=== PATIENT | male | born 1945 | race Caucasian/White ===

== ENCOUNTER → 2017-10-12 | Outpatient (CLI) | payer OTHER ==
[~2017-10-12] MED LIST: Doxycycline Hy100 MG PO; Vibramycin100 MG PO
== END | disposition home or self-care (01) ==
LOC: PLD 13:58
DX: M79.89 Other specified soft tissue disorders (principal)
CPT/HCPCS: 88304

== ENCOUNTER → 2018-03-19 | Outpatient (CLI) | payer OTHER | END | disposition home or self-care (01) | LOC: PLD 11:16 → LAB SHORT 11:16 | DX: L57.0 Actinic keratosis (principal) | CPT/HCPCS: 88305 ==

== ENCOUNTER 2019-01-13 08:25 | Day surgery (SDC) | payer OTHER ==
[~2019-01-13] VITALS: Ht 185.4 cm; Wt 72.4 kg
[~2019-01-13 08:25] MED LIST changes: +ESOM20 PO
[2019-01-13] MEDS ORDERED: IBUPROFEN COLD PO (09:12)
== END 2019-01-13 10:42 | disposition home or self-care (01) ==
LOC: ORSCSDS 08:25
PROVIDERS: Internal Medicine Gastroenterology
PROC: 0DB58ZX Excision of Esophagus, Via Natural or Artificial Opening Endoscopic, Diagnostic (ICD-10-PCS; principal; 2019-01-13 09:45)
DX: R13.10 Dysphagia, unspecified (principal); K20.9 Esophagitis, unspecified; R23.4 Changes in skin texture; Z86.73 Personal history of transient ischemic attack (TIA), and cerebral infarction without residual deficits; I10 Essential (primary) hypertension; E78.5 Hyperlipidemia, unspecified; Z79.899 Other long term (current) drug therapy
CPT/HCPCS: 88305; 88312; J2704; J7120

== ENCOUNTER → 2020-02-16 | Outpatient (CLI) | payer OTHER ==
[~2020-02-16] MED LIST changes: +IBUPROFEN COLD PO
== END ==
LOC: LAB SHORT 10:56 → LAB 10:56
DX: D48.5 Neoplasm of uncertain behavior of skin (principal)
CPT/HCPCS: 88305

== ENCOUNTER → 2020-08-24 | Outpatient (CLI) | payer OTHER ==
[~2020-08-24] MED LIST changes: +IBUP600 PO
== END | disposition home or self-care (01) ==
LOC: LAB 11:10 → LAB SHORT 11:10
DX: L57.0 Actinic keratosis (principal)
CPT/HCPCS: 88305

== ENCOUNTER 2020-10-08 11:09 | Day surgery (SDC) | payer OTHER ==
[~2020-10-08] VITALS: Ht 185.4 cm; Wt 72.5 kg
[~2020-10-08 11:09] MED LIST changes: -IBUP600 PO
[2020-10-08] MEDS ORDERED: IBUP600 PO (12:40)
--- NOTE | 2020-10-08 14:15 | NUR ---
10/08/20 1415 Kuldeep Figueroa History, Chart, Medications and Allergies reviewed before start of procedure.MONITOR INTACT WITH CONTINUOUS PULSE OXIMETRY AND INTERMITTENT BP.3-LEAD EKG REVIEWED WITH PHYSICIAN PRIOR TO START OF PROCEDURE.O2 VIA N/C INTACT THROUGHOUT SEDATION/PROCEDURE. See Anesthesia record.
--- NOTE | 2020-10-08 14:58 | NUR ---
PT TOLERATES APPLE JUICE s DIFFICULTY. SITE c DRESSING IN PLACE, NO REDNESS OR DRAINAGE NOTED ON BANDAGE. IV DC'D, CATH INTACT AND PRESSURE DRESSING APPLIED. GIVEN DC INSTRUCTIONS. PT VERBALIZES AN UNDERSTANDING. NO QUESTIONS. PT DRESSES SELF s DIFFICULTY. OTD IN NAD VIA WC, INSTRUCTIONS ALSO GIVEN TO . VERBALIZES AN UNDERSTANDING s QUESTIONS.
== END 2020-10-08 23:06 | disposition home or self-care (01) ==
LOC: ORSCMMR 11:09 → ORD 12:30 → ORSCMMR 12:30
PROVIDERS: Surgery
PROC: 0DH63UZ Insertion of Feeding Device into Stomach, Percutaneous Approach (ICD-10-PCS; principal; 2020-10-08 12:30)
DX: C10.2 Malignant neoplasm of lateral wall of oropharynx (principal); I10 Essential (primary) hypertension; R13.10 Dysphagia, unspecified; G47.30 Sleep apnea, unspecified
CPT/HCPCS: C1769; J0690; J2704; J7120

== ENCOUNTER → 2021-02-22 | Outpatient (CLI) | payer OTHER ==
[~2021-02-22] MED LIST changes: +IBUP600 PO
== END | disposition home or self-care (01) ==
LOC: LAB SHORT 12:00
DX: D22.5 Melanocytic nevi of trunk (principal); L57.0 Actinic keratosis
CPT/HCPCS: 88305

== ENCOUNTER 2021-07-06 15:31 | Emergency (ER) | payer OTHER ==
[~2021-07-06] VITALS: Ht 185.4 cm; Wt 65.8 kg
[2021-07-06 16:27] LABS: BASOPHILS ABSOLUTE AUTO 0.01 K/mm3 (0.00-0.23); BASOPHILS PERCENT AUTO 0 % (0-2); EOSINOPHILS ABSOLUTE AUTO 0.04 K/mm3 (0.00-0.68); EOSINOPHILS PERCENT AUTO 1 % (0-6); Hemoglobin 15.3 g/dL (13.5-17.5); IMMATURE GRAN ABSOLUTE AUTO 0.03 K/mm3 (0.00-0.10); IMMATURE GRAN PERCENT AUTO 1 % (0-1); LYMPHOCYTES ABSOLUTE AUTO 0.41 K/mm3 (0.84-5.20); LYMPHOCYTES PERCENT AUTO 6 % (21-46); MONOCYTES ABSOLUTE AUTO 0.47 K/mm3 (0.16-1.47); MONOCYTES PERCENT AUTO 7 % (4-13); Mean Corpuscular HGB 32.6 pg (26.0-34.0); Mean Corpuscular HGB Conc 33.3 g/dL (31.5-36.5); Mean Corpuscular Volume 98 fL (80-100); NEUTROPHILS ABSOLUTE AUTO 5.67 K/mm3 (1.96-9.15); NEUTROPHILS PERCENT AUTO 85 % (41-73); Platelet Count 186 K/mm3 (150-400); RDW Coefficient Variation 11.7 % (11.7-14.2); RDW Standard Deviation 42.5 fL (35.1-46.3); White Blood Cell Count 6.63 K/mm3 (4.00-11.30)
[2021-07-06 16:49] LABS: Alanine Aminotransfer (ALT/SGP 104 U/L (12-78); Albumin, Blood 3.6 g/dL (3.4-5.0); Alk Phos 351 U/L (50-136); Anion Gap 6 mmol/L (6-16); Aspartate Aminotrans (AST/SGOT 181 U/L (12-37); Bilirubin, Total 1.7 mg/dL (0.1-1.0); Blood Urea Nitrogen 11 mg/dL (8-24); Bun/Creatinine Ratio 15.9 (12.0-20.0); CO2, Blood 30 mmol/L (21-32); Calcium, Blood 9.5 mg/dL (8.5-10.1); Chloride, Blood 105 mmol/L (98-108); Creatinine, Blood 0.69 mg/dL (0.60-1.20); Globulin, Blood 3.6 g/dL (2.2-4.0); Glomerular Filtration Rate >60 (60-); Glucose, Blood 130 mg/dL (70-99); Sodium, Blood 141 mmol/L (136-145); Total Protein, Blood 7.2 g/dL (6.4-8.2)
[2021-07-06] MEDS ORDERED: ONDA4ODT MM (19:06)
== END 2021-07-06 19:42 | disposition home or self-care (01) ==
LOC: ER 15:31
PROVIDERS: Physician Assistant
DX: A08.4 Viral intestinal infection, unspecified (principal); Z88.0 Allergy status to penicillin; Z88.1 Allergy status to other antibiotic agents; Z79.899 Other long term (current) drug therapy; J44.9 Chronic obstructive pulmonary disease, unspecified
CPT/HCPCS: 36415; 76705; 80053; 83690; 85025; 96374; 96375; 99284-25; A9270; J1885; J2405; J7030

== ENCOUNTER 2022-04-26 19:39 | Emergency (ER) | payer OTHER ==
[~2022-04-26] VITALS: Ht 185.4 cm; Wt 68.0 kg
[~2022-04-26 19:39] MED LIST changes: +ONDA4ODT MM
[2022-04-26 20:14] LABS: BASOPHILS ABSOLUTE AUTO 0.03 K/mm3 (0.00-0.23); BASOPHILS PERCENT AUTO 0 % (0-2); EOSINOPHILS ABSOLUTE AUTO 0.47 K/mm3 (0.00-0.68); EOSINOPHILS PERCENT AUTO 5 % (0-6); IMMATURE GRAN ABSOLUTE AUTO 0.03 K/mm3 (0.00-0.10); IMMATURE GRAN PERCENT AUTO 0 % (0-1); LYMPHOCYTES ABSOLUTE AUTO 0.71 K/mm3 (0.84-5.20); LYMPHOCYTES PERCENT AUTO 7 % (21-46); MONOCYTES PERCENT AUTO 9 % (4-13); Mean Corpuscular HGB Conc 33.3 g/dL (31.5-36.5); Mean Corpuscular Volume 90 fL (80-100); Mean Platelet Volume 10.6 fL (9.1-12.4); NEUTROPHILS ABSOLUTE AUTO 7.83 K/mm3 (1.96-9.15); NEUTROPHILS PERCENT AUTO 79 % (41-73); Platelet Count 350 K/mm3 (150-400); RDW Coefficient Variation 12.5 % (11.7-14.2); RDW Standard Deviation 41.9 fL (35.1-46.3); White Blood Cell Count 9.97 K/mm3 (4.00-11.30)
[2022-04-26 20:40] LABS: Albumin, Blood 2.5 g/dL (3.4-5.0); Albumin/Globulin Ratio 0.5 (0.8-1.8); Bilirubin, Total 0.4 mg/dL (0.1-1.0); Bun/Creatinine Ratio 25.8 (12.0-20.0); Creatinine, Blood 0.62 mg/dL (0.60-1.20); Globulin, Blood 4.9 g/dL (2.2-4.0); Potassium, Blood 4.1 mmol/L (3.5-5.5); Total Protein, Blood 7.4 g/dL (6.4-8.2)
[2022-04-26 20:42] LABS: Source, Urine Clean Catch
[2022-04-26 20:49] LABS: Bilirubin, Urine Neg (Neg); Blood, Urine Neg (Neg); Glucose Qualitative, Urine Neg (Neg); Ketones, Urine Neg (Neg); Leukocyte Esterase, Urine Neg (Neg); Nitrite, Urine Neg (Neg); Protein, Urine Neg (Neg); Urobilinogen, Urine NORM (Normal)
[2022-04-26 21:00] LABS: Appearance, Urine Clear (Clear); Color, Urine Yellow (P-Yellow)
== END 2022-04-27 01:14 | disposition home or self-care (01) ==
LOC: ER 19:39
PROVIDERS: Physician Assistant
DX: R55 Syncope and collapse (principal); J44.9 Chronic obstructive pulmonary disease, unspecified; N17.9 Acute kidney failure, unspecified; I49.1 Atrial premature depolarization; I49.3 Ventricular premature depolarization; Z85.89 Personal history of malignant neoplasm of other organs and systems; Z88.0 Allergy status to penicillin; Z88.1 Allergy status to other antibiotic agents
CPT/HCPCS: 36415; 80053; 81003; 83690; 84484; 85025; 93005; 93010; 96360; 99284-25; J2405; J7030

== ENCOUNTER → 2022-05-02 | Outpatient (CLI) | payer OTHER | END | disposition home or self-care (01) | LOC: LAB 13:45 → LAB SHORT 13:45 | DX: L08.0 Pyoderma (principal) | CPT/HCPCS: 87070; 87075; 87205 ==

== ENCOUNTER 2022-06-15 10:38 | Observation (INO) | payer OTHER ==
[~2022-06-15] VITALS: Ht 185.4 cm; Wt 69.6 kg
[2022-06-15 11:50] LABS: BASOPHILS ABSOLUTE AUTO 0.04 K/mm3 (0.00-0.23); BASOPHILS PERCENT AUTO 0 % (0-2); EOSINOPHILS ABSOLUTE AUTO 0.01 K/mm3 (0.00-0.68); EOSINOPHILS PERCENT AUTO 0 % (0-6); Hematocrit 32.6 % (37.0-53.0); Hemoglobin 10.6 g/dL (13.5-17.5); IMMATURE GRAN ABSOLUTE AUTO 0.14 K/mm3 (0.00-0.10); IMMATURE GRAN PERCENT AUTO 1 % (0-1); LYMPHOCYTES ABSOLUTE AUTO 0.24 K/mm3 (0.84-5.20); LYMPHOCYTES PERCENT AUTO 2 % (21-46); MONOCYTES ABSOLUTE AUTO 0.72 K/mm3 (0.16-1.47); MONOCYTES PERCENT AUTO 5 % (4-13); Mean Corpuscular HGB 28.9 pg (26.0-34.0); Mean Corpuscular HGB Conc 32.5 g/dL (31.5-36.5); Mean Corpuscular Volume 89 fL (80-100); Mean Platelet Volume 11.1 fL (9.1-12.4); NEUTROPHILS ABSOLUTE AUTO 12.85 K/mm3 (1.96-9.15); NEUTROPHILS PERCENT AUTO 92 % (41-73); Platelet Count 426 K/mm3 (150-400); RDW Coefficient Variation 14.4 % (11.7-14.2); RDW Standard Deviation 46.2 fL (35.1-46.3); Red Blood Cell Count 3.67 M/mm3 (4.30-5.90)
[2022-06-15 12:21] LABS: Albumin, Blood 2.3 g/dL (3.4-5.0); Albumin/Globulin Ratio 0.5 (0.8-1.8); Bilirubin, Total 0.4 mg/dL (0.1-1.0); Bun/Creatinine Ratio 29.5 (12.0-20.0); Calcium, Blood 8.8 mg/dL (8.5-10.1); Creatinine, Blood 0.58 mg/dL (0.60-1.20); Globulin, Blood 4.4 g/dL (2.2-4.0); Potassium, Blood 4.1 mmol/L (3.5-5.5); Total Protein, Blood 6.7 g/dL (6.4-8.2)
[2022-06-15] MEDS ORDERED: Prednisone10 MG PO (13:49)
[2022-06-15] MEDS ORDERED: HYDROCODONE-AC118 M5 PO (13:51)
--- NOTE | 2022-06-15 14:54 | NUR ---
Spiritual Care ED Visit - Pt. request Pt. is awake in bed in the ED and welcomes my visit. Spouse had requested Spiritual Care visit, and is also present. Pt. is initially unsettled because of the uncertain cause of acute pain earlier in the day. Through theraputic listening and a calming presence Pt. displays evidence of relaxing and rapport is established. Pt is taken to get a Ct Scan, when he returns Prayed with Pt. and spouse. Pt. requested this dock boss communicate his condition with an elder from his restorationist. Will continue to be available to the Pt. and spouse.
[2022-06-15 16:02] LABS: Anti-Xa UFH, PHA Monitoring <0.10 IU/mL; Prothrombin Time Results 10.5 Sec (9.7-11.5)
--- NOTE | 2022-06-15 19:44 | NUR ---
PT ARRIVED FROM ED 1941 VIA STRETCHER, AMBULATED TO BED SBA. ORIENTED TO ROOM SET UP AND SAFETY. AT BEDSIDE SUPPORTIVE IN PT CARE. SETTLED IN AND GOT FLUIDS, AWAITING TELE. PT STATES NO ACTIVE CHEST PAIN CURRENTLY. CALL LIGHT IN REACH. WILL REPOERT TO GRAIN THRESHER.
[2022-06-15] MEDS ORDERED: IBUP400 PO (20:07)
[2022-06-15] MEDS ORDERED: Acetaminophen650 M1 PO (20:07)
--- NOTE | 2022-06-16 06:41 | NUR ---
SHIFT SUMMARY; NO ACUTE CHANGES OVERNIGHT. PTS TROPONIN LEVEL DID ELEVATE TO 176, BUT THE PT DENIES CHEST PAIN/SOB AND CHEST TIGHTNESS. NOTIFIED OF ELEVATED TROPONIN, NO NEW ORDERS AT THIS TIME. THE PT WAS ABLE TO GET SOME REST LAST NIGHT. CURRENTLY THE PT IS RESTING IN BED WITH THE BED IN THE LOWEST POSITION AND THE CALL LIGHT AT BEDSIDE.
--- NOTE | 2022-06-16 17:06 | NUR ---
SHIFT SUMMARY NO ACUTE CHANGES DURING SHIFT. PT ALERT AND ORIENTED, CALLS APPROPRIATELY. ECHO COMPLETED, CARDIAC CONSULT COMPLETED, STRESS TEST ORDERED. PT COMPLETED RESTING IMAGES TODAY, COMPLETE [place] TOMORROW MORNING. PT ON RA, INDEPENDENT IN ROOM. WILL CONTINUE TO MONITOR. CALL LIGHT WITHIN REACH.
--- NOTE | 2022-06-16 17:09 | NUR ---
Pt. is awake and welcomes my visit. Spouse is present and rapport is quickly re-established. Facilitate life review and prognosis update. Pt. displays evidence of engagement, optimism and hope. [place] with Pt. and spouse and both verbalize gratitude for the spiritual care visit.
--- NOTE | 2022-06-17 04:08 | NUR ---
SHIFT SUMMARY NOC PT A/OX4. NO ACUTE CHANGES DURING SHIFT. PT STILL ON TELE WITH SINUS ARRYHTMIA @ 80bpm. PT HAS NOT HAD A BM IN A COUPLE OF DAYS. PT IS CURRENTLY IS ON A NO CAFFEINE RESTRICTION AND IS NPO PENDING STRESS TEST AT 0800 ON 06/17/22. PT IS CURRENTLY RESTING WITH BED RAILS UP, BED IN LOWEST POSITION, AND CALL LIGHT WITHIN REACH.
--- NOTE | 2022-06-17 08:13 | NUR ---
medical laboratory technical officer in room with pt for stress test
--- NOTE | 2022-06-17 08:24 | NUR ---
while performing shift assessment, assessing pt's psych/social status r/t cancer diagnosis pt reports he has no pain in the throat at this time, that the cancer there is gone but that his pain is in his back r/t the hospital bed. 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 this rn provided therapeutic communication regarding pt's family and activities
--- NOTE | 2022-06-17 11:30 | NUR ---
pt and family provided with discharge instructions, printed education; pt and state understanding of instructions. peripheral IV removed WNL. pt's family will transport his belongings to waiting vehicle. pt declines wheelchair escort to vehicle, prefers to walk
[2022-06-17] MEDS ORDERED: DOCUZEN 8.6-501 EACH PO (12:00)
== END 2022-06-17 12:13 | disposition home or self-care (01) ==
LOC: ER 10:38 → MEDS 10:39
PROVIDERS: Physician Assistant; Student in an Organized Health Care Education/Training Program; ADMIT Family Medicine
DX: R07.89 Other chest pain (principal); C34.31 Malignant neoplasm of lower lobe, right bronchus or lung; C78.7 Secondary malignant neoplasm of liver and intrahepatic bile duct; C79.51 Secondary malignant neoplasm of bone; C79.89 Secondary malignant neoplasm of other specified sites; R06.00 Dyspnea, unspecified; I49.3 Ventricular premature depolarization; I49.1 Atrial premature depolarization; D72.829 Elevated white blood cell count, unspecified; R63.4 Abnormal weight loss; R77.8 Other specified abnormalities of plasma proteins; J44.9 Chronic obstructive pulmonary disease, unspecified; Z88.0 Allergy status to penicillin; Z88.1 Allergy status to other antibiotic agents; Z85.819 Personal history of malignant neoplasm of unspecified site of lip, oral cavity, and pharynx
CPT/HCPCS: 36415; 71046; 71260; 78452; 80053; 83690; 84484; 85025; 85520; 85610; 85651; 85730; 86140; 93005; 93010; 93017; 93306; 96372; A9270; A9500; G0378; J0706; J1644; J1650; J2270; J2785; J7512; Q9967

== ENCOUNTER 2022-07-05 09:40 | Day surgery (SDC) | payer OTHER ==
[~2022-07-05] VITALS: Ht 185.4 cm; Wt 69.5 kg
[~2022-07-05 09:40] MED LIST changes: +Acetaminophen650 M1 PO; +DOCUZEN 8.6-501 EACH PO; +HYDROCODONE-AC118 M5 PO; +IBUP400 PO; +Prednisone10 MG PO
[2022-07-05] MEDS ORDERED: OXYC1L (10:01)
[2022-07-05] MEDS ORDERED: MORPHINE PO (10:05)
--- NOTE | 2022-07-05 11:02 | NUR ---
PT A&OX4, PT CHATTING C STAFF AND AMBULATORY IN DAY SURGERY. Surgical site prepped with 2% Chlorhexidine cloth wipe. History, Chart, Medications and Allergies reviewed before start of procedure.Lungs clear T/O to Auscultation. Patient confirms NPO status and agrees with scheduled surgery. Pre-Op teaching done. Pt verbalizes understanding. Patient States Post-Procedure ride home has been arranged. Patient reports completing Chlorhexadine shower X2 prior to admission to hospital.
== END 2022-07-05 23:00 | disposition home or self-care (01) ==
LOC: ORSCMMR 09:40 → ORD 11:00 → ORSCMMR 11:00
PROVIDERS: Surgery
PROC: 05HM33Z Insertion of Infusion Device into Right Internal Jugular Vein, Percutaneous Approach (ICD-10-PCS; principal; 2022-07-05 11:00)
PROC: B543ZZA Ultrasonography of Right Jugular Veins, Guidance (ICD-10-PCS; principal; 2022-07-05 11:00)
DX: C13.2 Malignant neoplasm of posterior wall of hypopharynx (principal); I10 Essential (primary) hypertension; I25.2 Old myocardial infarction
CPT/HCPCS: 77001; C1788; J0690; J1100; J1642; J2405; J2704; J2795; J3010; J7120

== ENCOUNTER → 2022-07-21 | Outpatient (CLI) | payer OTHER ==
[~2022-07-21] MED LIST changes: +MORPHINE PO; +OXYC1L
[2022-07-21 09:43] LABS: BASOPHILS ABSOLUTE AUTO 0.05 K/mm3 (0.00-0.23); BASOPHILS PERCENT AUTO 0 % (0-2); EOSINOPHILS ABSOLUTE AUTO 0.15 K/mm3 (0.00-0.68); EOSINOPHILS PERCENT AUTO 1 % (0-6); Hematocrit 30.2 % (37.0-53.0); Hemoglobin 9.3 g/dL (13.5-17.5); IMMATURE GRAN ABSOLUTE AUTO 0.19 K/mm3 (0.00-0.10); IMMATURE GRAN PERCENT AUTO 1 % (0-1); LYMPHOCYTES ABSOLUTE AUTO 0.64 K/mm3 (0.84-5.20); LYMPHOCYTES PERCENT AUTO 3 % (21-46); MONOCYTES ABSOLUTE AUTO 1.61 K/mm3 (0.16-1.47); MONOCYTES PERCENT AUTO 9 % (4-13); Mean Corpuscular HGB 25.8 pg (26.0-34.0); Mean Corpuscular HGB Conc 30.8 g/dL (31.5-36.5); Mean Corpuscular Volume 84 fL (80-100); Mean Platelet Volume 11.9 fL (9.1-12.4); NEUTROPHILS ABSOLUTE AUTO 16.12 K/mm3 (1.96-9.15); NEUTROPHILS PERCENT AUTO 86 % (41-73); Platelet Count 422 K/mm3 (150-400); RDW Coefficient Variation 15.6 % (11.7-14.2); RDW Standard Deviation 47.5 fL (35.1-46.3); White Blood Cell Count 18.76 K/mm3 (4.00-11.30)
[2022-07-21 09:45] LABS: Bun/Creatinine Ratio 29.3 (12.0-20.0); Calcium, Blood 7.8 mg/dL (8.5-10.1); Creatinine, Blood 0.72 mg/dL (0.60-1.20); Potassium, Blood 3.9 mmol/L (3.5-5.5)
== END ==
LOC: LAB 07:16 → LAB SHORT 07:16
PROVIDERS: Internal Medicine
DX: I10 Essential (primary) hypertension (principal); D64.9 Anemia, unspecified
CPT/HCPCS: 36415; 80048; 85025